=== PATIENT | male | born 1965 | race Caucasian/White ===

== ENCOUNTER 2020-08-21 18:36 | Observation (INO) | payer OTHER ==
--- NOTE | 2020-08-21 19:56 | ED ---
General Adult HPI - General Chief complaint: Chest Pain Stated complaint: Sent by [facility] - Chest Pain Time Seen by Provider: 08/21/20 18:59 Source: patient Mode of arrival: ambulatory Limitations: no limitations - History of Present Illness Initial comments: 55-year-old male presents to the emergency department this evening accompanied by his for evaluation of left-sided chest pain. Patient states pain began around noon today and was accompanied by shortness of breath and diaphoresis. Patient states the pain was made worse by movement and deep breathing. States the pain became so intense that he felt weak and lowered himself onto all fours. Patient denies any nausea or vomiting at that time. States this post came home and was able to coax him into seeking treatment. Patient went to [facility] around 6 PM this evening but he was sent to this ER due to abnormal EKG. Patient was given 4 baby aspirin prior to arrival and states he feels significantly better. Patient is concerned due to a history of pericarditis 5 years ago and states his current symptoms are similar. Also reports some abdominal discomfort at this time. Patient denies any recent rash, fever, chills, cough, diarrhea, constipation, back pain, numbness, tingling, dizziness, hematuria, dysuria, urinary urgency, urinary frequency, headache, visual changes, or any other complaints. - Related Data Home Medications Medication Instructions Recorded Confirmed No Known Home Medications 08/21/20 08/21/20 Allergies Allergy/AdvReac Type Severity Reaction Status Date / Time No Known Allergies Allergy Verified 08/21/20 21:03 Review of Systems ROS Statement: Those systems with pertinent positive or pertinent negative responses have been documented in the HPI. ROS Other: All systems not noted in ROS Statement are negative. Past Medical History Additional Past Medical History / Comment(s): pericarditis History of Any Multi-Drug Resistant Organisms: None Reported Past Surgical History: No Surgical Hx Reported Smoking Status: Never smoker Past Alcohol Use History: Occasional Past Drug Use History: None Reported General Exam Limitations: no limitations General appearance: alert, in no apparent distress, other (Well-developed, well- nourished male in no acute distress. Initial temperature 97.4F, pulse 70, respirations 18, blood pressure 179/84, pulse ox 98% on room air.) Eye exam: Present: normal appearance, PERRL, EOMI. Absent: scleral icterus, conjunctival injection, periorbital swelling Respiratory exam: Present: normal lung sounds bilaterally. Absent: respiratory distress, wheezes, rales, rhonchi, stridor Cardiovascular Exam: Present: regular rate, normal rhythm, normal heart sounds. Absent: systolic murmur, diastolic murmur, rubs, gallop, clicks GI/Abdominal exam: Present: soft, tenderness (Upper abdominal pain though PALPATION), normal bowel sounds. Absent: distended, guarding, rebound, rigid Neurological exam: Present: alert, oriented X3, CN II-XII intact Psychiatric exam: Present: normal affect, normal mood Skin exam: Present: warm, dry, intact, normal color. Absent: rash Course Vital Signs 08/21/20 08/21/20 08/21/20 18:40 20:20 20:43 Temperature 97.4 F L Pulse Rate 70 56 L Respiratory 18 15 18 Rate Blood Pressure 179/84 125/83 O2 Sat by Pulse 98 95 Oximetry Medical Decision Making - Medical Decision Making 55-year-old white male presents to the emergency Department with complaints of left-sided chest pain, onset noon today. Accompanying symptoms include shortness of breath and diaphoresis. Patient's pain was made worse with movement and deep breathing. Patient's spouse took the patient to [facility] ([facility] where an EKG was done and found to be abnormal. He was given 4 baby aspirin prior to arrival and states he is feeling much better. Patient does have a history of pericarditis and states these symptoms are very similar. EKG upon ar rival appears normal with no ST segment changes. Patient is comfortable, heart sounds are normal. Patient does have an elevated white blood cell count. Chest x-ray is negative for any definite acute process, however does show an elevated right hemidiaphragm. Patient is to be admitted for further evaluation and treatment. - Lab Data Result diagrams: 08/21/20 19:45 08/21/20 19:45 Lab Results 08/21/20 08/21/20 08/21/20 Range/Units 19:45 19:45 19:45 WBC 15.0 H (3.8-10.6) k/uL RBC 5.04 (4.30-5.90) m/uL Hgb 15.4 (13.0-17.5) gm/dL Hct 47.5 (39.0-53.0) % MCV 94.2 (80.0-100.0) fL MCH 30.5 (25.0-35.0) pg MCHC 32.4 (31.0-37.0) g/dL RDW 12.4 (11.5-15.5) % Plt Count 215 (150-450) k/uL Neutrophils % 88 % Lymphocytes % 8 % Monocytes % 3 % Eosinophils % 1 % Basophils % 0 % Neutrophils # 13.2 H (1.3-7.7) k/uL Lymphocytes # 1.2 (1.0-4.8) k/uL Monocytes # 0.4 (0-1.0) k/uL Eosinophils # 0.1 (0-0.7) k/uL Basophils # 0.0 (0-0.2) k/uL ESR (0-15) mm/hr PT 9.7 (9.0-12.0) sec INR 0.9 (<1.2) APTT 25.0 (22.0-30.0) sec D-Dimer <0.17 (<0.60) mg/L FEU Sodium 136 L (137-145) mmol/L Potassium 4.3 (3.5-5.1) mmol/L Chloride 103 (98-107) mmol/L Carbon Dioxide 24 (22-30) mmol/L Anion Gap 9 mmol/L BUN 18 (9-20) mg/dL Creatinine 0.92 (0.66-1.25) mg/dL Est GFR (CKD-EPI)AfAm >90 (>60 ml/min/1.73 sqM) Est GFR (CKD-EPI)NonAf >90 (>60 ml/min/1.73 sqM) Glucose 100 H (74-99) mg/dL Calcium 9.7 (8.4-10.2) mg/dL Magnesium 2.0 (1.6-2.3) mg/dL Total Bilirubin 1.0 (0.2-1.3) mg/dL AST 29 (17-59) U/L ALT 22 (4-49) U/L Alkaline Phosphatase 67 (38-126) U/L Troponin I (0.000-0.034) ng/mL C-Reactive Protein (<10.0) mg/L Total Protein 7.8 (6.3-8.2) g/dL Albumin 4.8 (3.5-5.0) g/dL Lipase 78 (23-300) U/L 08/21/20 08/21/20 08/21/20 Range/Units 19:45 19:45 19:45 WBC (3.8-10.6) k/uL RBC (4.30-5.90) m/uL Hgb (13.0-17.5) gm/dL Hct (39.0-53.0) % MCV (80.0-100.0) fL MCH (25.0-35.0) pg MCHC (31.0-37.0) g/dL RDW (11.5-15.5) % Plt Count (150-450) k/uL Neutrophils % % Lymphocytes % % Monocytes % % Eosinophils % % Basophils % % Neutrophils # (1.3-7.7) k/uL Lymphocytes # (1.0-4.8) k/uL Monocytes # (0-1.0) k/uL Eosinophils # (0-0.7) k/uL Basophils # (0-0.2) k/uL ESR 7 (0-15) mm/hr PT (9.0-12.0) sec INR (<1.2) APTT (22.0-30.0) sec D-Dimer (<0.60) mg/L FEU Sodium (137-145) mmol/L Potassium (3.5-5.1) mmol/L Chloride (98-107) mmol/L Carbon Dioxide (22-30) mmol/L Anion Gap mmol/L BUN (9-20) mg/dL Creatinine (0.66-1.25) mg/dL Est GFR (CKD-EPI)AfAm (>60 ml/min/1.73 sqM) Est GFR (CKD-EPI)NonAf (>60 ml/min/1.73 sqM) Glucose (74-99) mg/dL Calcium (8.4-10.2) mg/dL Magnesium (1.6-2.3) mg/dL Total Bilirubin (0.2-1.3) mg/dL AST (17-59) U/L ALT (4-49) U/L Alkaline Phosphatase (38-126) U/L Troponin I <0.012 (0.000-0.034) ng/mL C-Reactive Protein 8.4 (<10.0) mg/L Total Protein (6.3-8.2) g/dL Albumin (3.5-5.0) g/dL Lipase (23-300) U/L - EKG Data EKG shows normal: sinus rhythm Rate: normal EKG Comments: EKG was obtained at 1915 and shows normal sinus rhythm with a ventricular rate of 60, VT interval 156, QRS duration 86, QT/QTc 430/430. Interpreted as a Normal ECG. Interpretation: normal EKG - Radiology Data Radiology results: report reviewed Two-view chest x-ray was obtained. Findings include elevated right hemidiaphragm. Impression per include no definite acute radiographic process. Disposition Clinical Impression: Chest pain Disposition: ADMITTED IP TO THIS HOSP Condition: Serious Referrals: Jeet Garcia DO [Primary Care Provider] - 1-2 days Decision to Admit Reason: Admit from EC Decision Date: 08/21/20 Decision Time: 21:24
[2020-08-21 20:08] LABS: ALT 22 U/L (4-49); AST 29 U/L (17-59); African American GFR (CKD) >90 (>60 ml/min/1.73 sqM); Albumin 4.8 g/dL (3.5-5.0); Alkaline Phosphatase 67 U/L (38-126); Anion Gap 9 mmol/L; Blood Urea Nitrogen 18 mg/dL (9-20); Calcium 9.7 mg/dL (8.4-10.2); Carbon Dioxide 24 mmol/L (22-30); Chloride 103 mmol/L (98-107); Glucose 100 mg/dL (74-99); Lipase 78 U/L (23-300); Non-African American GFR(CKD) >90 (>60 ml/min/1.73 sqM); Potassium 4.3 mmol/L (3.5-5.1); Sodium 136 mmol/L (137-145); Total Protein 7.8 g/dL (6.3-8.2)
[2020-08-21 20:09] LABS: Basophils % (A) 0 %; Eosinophils # (A) 0.1 k/uL (0-0.7); Eosinophils % (A) 1 %; HCT 47.5 % (39.0-53.0); HGB 15.4 gm/dL (13.0-17.5); Lymphocytes # (A) 1.2 k/uL (1.0-4.8); Lymphocytes % (A) 8 %; MCH 30.5 pg (25.0-35.0); MCHC 32.4 g/dL (31.0-37.0); MCV 94.2 fL (80.0-100.0); Mean Platelet Volume 8.7; Monocytes # (A) 0.4 k/uL (0-1.0); Monocytes % (A) 3 %; Neutrophils # (A) 13.2 k/uL (1.3-7.7); Neutrophils % (A) 88 %; Platelet Count 215 k/uL (150-450); RBC 5.04 m/uL (4.30-5.90); RDW 12.4 % (11.5-15.5)
[2020-08-21 20:20] LABS: D-Dimer <0.17 mg/L FEU (<0.60); INR 0.9 (<1.2); Prothrombin Time 9.7 sec (9.0-12.0)
--- NOTE | 2020-08-21 20:25 | XR ---
EXAMINATION: XR chest 2V DATE AND TIME: 08/21/2020 7:54 PM CLINICAL INDICATION: PHH; Chest Pain TECHNIQUE: Departmental protocol COMPARISON: None FINDINGS: The lungs are clear. The pleural spaces are negative. Elevated right hemidiaphragm noted. The cardiac silhouette is not enlarged. The remainder of the mediastinal silhouette is unremarkable. The skeletal structures and soft tissues are negative for acute findings. IMPRESSION: No definite acute radiographic process; elevated right hemidiaphragm noted.
[2020-08-21] MEDS ORDERED: MORPHINE SULFATE 4 MG/ML SYRINGE IV PRN (21:21)
[2020-08-21] MEDS ORDERED: ONDANSETRON 4 MG/2 ML VIAL IVP PRN (21:21)
[2020-08-21] MEDS ORDERED: NALOXONE 0.4 MG/ML 1 ML VIAL IV PRN (21:21)
[2020-08-22] MEDS ORDERED: CAFFEINE CITRATE 60 MG/3 ML VIAL IV PRN (08:11)
[2020-08-22] MEDS ORDERED: REGADENOSON 0.4 MG/5 ML SYRINGE IV ONE (08:11)
[2020-08-22] MEDS ORDERED: AMINOPHYLLINE 500 MG/20 ML VIAL IV PRN (08:11)
[2020-08-22] MEDS ORDERED: ASPIRIN 325 MG TAB PO SCH (09:00)
--- NOTE | 2020-08-22 10:52 | NM ---
EXAMINATION TYPE: NM stress lexiscan cardiolite DATE OF EXAM: 08/22/2020 COMPARISON: NONE HISTORY: Chest pain TECHNIQUE: After the intravenous administration of 10.56 mCi Tc 99m Sestamibi - Cardiolite resting S PECT images acquired 45 minutes post injection. The patient received 0.4mg Lexiscan, 25.8 mCi Tc 99m Sestamibi - Stress images obtained [address] injection FINDINGS: Review of stress and rest SPECT images demonstrates no distinct perfusion abnormality. Gated analysi s shows normal wall motion with an estimated left ventricular ejection fraction of 63 %. TID 1.00 IMPRESSION: No scintigraphic evidence for reversible ischemia.
--- NOTE | 2020-08-22 13:31 | P.HPIM ---
History of Present Illness 55-year-old male came in with the lesser chest pain which is sharp in nature worsens with deep breathing moderate severity patient had history of pericarditis in the past which was most severe back then. Patient has similar symptoms now much less severe patient chest pain does improve with bending forwards patient has a d-dimer which is within normal limits patient appears to pericarditis again. Patient was evaluated and ruled out for acute coronary syndromes and patient had a stress test which was negative. Patient doesn't like to take medication because of which I am giving him a short course of nonsteroidal anti-inflammatories possible pericarditis. Review of Systems REVIEW OF SYSTEMS: CONSTITUTIONAL: No fever, no malaise, no fatigue. HEENT: No recent visual problems or hearing problems. Denied any sore throat. CARDIOVASCULAR: No orthopnea, PND, no palpitations, no syncope. PULMONARY: No shortness of breath, no cough, no hemoptysis. GASTROINTESTINAL: No diarrhea, no nausea, no vomiting, no abdominal pain. NEUROLOGICAL: No headaches, no weakness, no numbness. HEMATOLOGICAL: Denies any bleeding or petechiae. GENITOURINARY: Denies any burning micturition, frequency, or urgency. MUSCULOSKELETAL/RHEUMATOLOGICAL: Denies any joint pain, swelling, or any muscle pain. ENDOCRINE: Denies any polyuria or polydipsia. The rest of the 14-point review of systems is negative. Past Medical History Additional Past Medical History / Comment(s): pericarditis History of Any Multi-Drug Resistant Organisms: None Reported Past Surgical History: No Surgical Hx Reported Past Anesthesia/Blood Transfusion Reactions: No Reported Reaction Past Psychological History: No Psychological Hx Reported Smoking Status: Never smoker Past Alcohol Use History: Occasional Past Drug Use History: None Reported - Past Family History Father Family Medical History: Cancer Mother Family Medical History: Cancer, Diabetes Mellitus Medications and Allergies Home Medications Medication Instructions Recorded Confirmed Type Famotidine [Pepcid] 20 mg PO BID #30 tablet 08/22/20 Rx Ibuprofen [Motrin] 600 mg PO Q8HR #100 tab 08/22/20 Rx Allergies Allergy/AdvReac Type Severity Reaction Status Date / Time No Known Allergies Allergy Verified 08/21/20 21:03 Physical Exam Vitals: Vital Signs Temp Pulse Pulse Resp BP BP Pulse Ox 08/22/20 08:23 97.8 F 59 L 16 158/90 96 08/22/20 03:00 97.4 F L 67 16 124/75 96 08/21/20 22:32 98.2 F 58 L 18 140/80 97 08/21/20 22:11 97.7 F 53 L 18 138/85 98 08/21/20 20:43 56 L 18 125/83 95 08/21/20 20:20 15 08/21/20 18:40 97.4 F L 70 18 179/84 98 Intake and Output 08/21/20 08/22/20 08/22/20 22:59 06:59 14:59 Other: Voiding Method Toilet Toilet # Voids 2 1 Weight 140.614 kg 140.61 kg PHYSICAL EXAMINATION: GENERAL: The patient is alert and oriented x3, not in any acute distress. Well developed, well nourished. HEENT: Pupils are round and equally reacting to light. EOMI. No scleral icterus. No conjunctival pallor. Normocephalic, atraumatic. No pharyngeal erythema. No thyromegaly. CARDIOVASCULAR: S1 and S2 present. No murmurs, rubs, or gallops. PULMONARY: Chest is clear to auscultation, no wheezing or crackles. ABDOMEN: Soft, nontender, nondistended, normoactive bowel sounds. No palpable organomegaly. MUSCULOSKELETAL: No joint swelling or deformity. EXTREMITIES: No cyanosis, clubbing, or pedal edema. NEUROLOGICAL: Gross neurological examination did not reveal any focal deficits. SKIN: No rashes. Results CBC & Chem 7: 08/21/20 19:45 08/21/20 19:45 Labs: Abnormal Lab Results - Last 24 Hours (Table) 08/21/20 08/21/20 Range/Units 19:45 19:45 WBC 15.0 H (3.8-10.6) k/uL Neutrophils # 13.2 H (1.3-7.7) k/uL Sodium 136 L (137-145) mmol/L Glucose 100 H (74-99) mg/dL Thrombosis Risk Factor Assmnt - Choose All That Apply Each Factor Represents 1 point: Age 41-60 years Other Risk Factors: No Other congenital or acquired thrombophilia - If yes, enter type in comment: No Thrombosis Risk Factor Assessment Total Risk Factor Score: 1 Thrombosis Risk Factor Assessment Level: Low Risk Assessment and Plan Plan: -Chest pain: Ruled out acute coronary syndromes. Patient has stress test which was negative for any inducible ischemia. Patient probably has pericarditis will be discharged on the nonsteroidal anti-inflammatories and Pepcid. -Leukocytosis: Reactive in nature.
--- NOTE | 2020-08-22 13:32 | P.DS ---
Providers Date of admission: 08/21/20 21:26 Attending physician: Agnes Martins Consults: 08/21/20 21:22 Consult Physician Routine Consulting Provider: [facility] Consult Reason/Comments: Chest Pain Do you want consulting provider notified?: Yes Primary care physician: Jeet Garcia [facility] Course: Please review my H&P for further details. Patient Condition at Discharge: Serious Plan - Discharge Summary Discharge Rx Participant: No New Discharge Prescriptions: New Ibuprofen [Motrin] 600 mg PO Q8HR #100 tab Famotidine [Pepcid] 20 mg PO BID #30 tablet Discharge Medication List Famotidine [Pepcid] 20 mg PO BID #30 tablet 08/22/20 [Rx] Ibuprofen [Motrin] 600 mg PO Q8HR #100 tab 08/22/20 [Rx] Follow up Appointment(s)/Referral(s): [facility] [Provider Group] - 1 Week Jeet Garcia DO [Primary Care Provider] - 3 Days Discharge Disposition: HOME SELF-CARE
[2020-08-22 17:01] VITALS: BP 128/77; PULSE 58; RESP 14; TEMP 97.7
--- NOTE | 2020-08-22 17:03 | P.STRESS ---
- Stress Test Note Stress Test Results/Findings: Exam Performed: NM stress lexiscan cardiolite Exam Date: 08/22/20 Reason for Exam: CHEST PAIN Height: 5 ft 11 in Weight: 140.61 kg Protocol: LEXISCAN Stage: N/A Duration of Exercise: 6 MINUTES Resting Heart Rate: 63 Resting Blood Pressure: 138/79 Maximum Achieved Heart Rate: 87 Maximum Achieved Blood Pressure: 141/78 85% PMHR: 139 100% PMHR: 163 METS: N/A Technologist Comment: Stress Test Results/Findings: At baseline EKG showed normal sinus rhythm, normal axis, no significant ST-T wave abnormalities. Patient recieved IV infusion of Lexiscan 0.4mg and at peak infusion EKG showed no significant change. Conclusions: 1. Normal EKG response to Lexiscan infusion 2. Nuclear imaging to be reported separately.
--- NOTE | 2020-08-22 17:41 | P.CRDCN ---
History of Present Illness Consult date: 08/22/20 History of present illness: HISTORY OF PRESENTING ILLNESS This is a pleasant 55-year-old male past medical history significant for pericarditis. Patient presents with chest pain over the last day which feels sharp and is worse with deep breathing. He does have a history of pericarditis from a few years back and had been doing fairly well. He followed up with a drapery inspector however stated that he had been doing well and therefore was not recommended to follow-up. He denies prior history of similar chest pain other than somewhat with his pericarditis. He states that the chest pain is associated with some shortness of breath but the shortness breath is mainly that he can't take a deep breath in. He additionally states that the pain is somewhat improved with sitting forward. No nausea or diaphoresis. DIAGNOSTICS EKG reveals normal sinus rhythm, Q wave in lead 3 with T-wave inversion in lead 3 very minimal possible [place] depression in lead 2 and V4 through V6, minimal 0.[address] elevation in lead V2 V3. No reciprocal changes. Chest xray tiny area of subsegmental atelectasis left lung Laboratory reviewed, white blood cell count 15.0, hemoglobin 15.4, platelets 2:15, d-dimer less than 0.17, creatinine 0.92, troponin less than 0.0123. Current cardiac medications include aspirin 325 mg daily. REVIEW OF SYSTEMS At the time of my exam: CONSTITUTIONAL: Denies fever or chills. CARDIOVASCULAR: Denies chest pain, shortness of breath, orthopnea, PND or palpitations. RESPIRATORY: Denies cough. GASTROINTESTINAL: Denies abdominal pain, diarrhea, constipation, nausea or vomiting. MUSCULOSKELETAL: Denies myalgias. NEUROLOGIC: Denies numbness, tingling or weakness. ENDOCRINE: Denies fatigue, weight change, polydipsia or polyurina. GENITOURINARY: Denies burning, hematuria or urgency with micturation. HEMATOLOGIC: Denies history of anemia or bleeding. PHYSICAL EXAMINATION Blood pressure 128/77 heart rate 58 afebrile and maintaining oxygen saturation on room air. CONSTITUTIONAL: No apparent distress. HEENT: Head is normocephalic. Pupils are equal, round. Sclerae anicteric. Mucous membranes of the mouth are moist. No JVD. No carotid bruit. CHEST EXAMINATION: Lungs are clear to auscultation. No chest wall tenderness is noted on palpation or with deep breathing. HEART EXAMINATION: Regular rate and rhythm. S1, S2 heard. No murmurs, gallops or rub. ABDOMEN: Soft, nontender. Positive bowel sounds. EXTREMITIES: 2+ peripheral pulses, no lower extremity edema and no calf tenderness. NEUROLOGIC EXAMINATION: Patient is awake, alert and oriented x3. ASSESSMENT 1. Atypical chest pain which is somewhat pleuritic, worsened with deep i nspiration 2. History of pericarditis 3. Leukocytosis PLAN Patient without classical findings of pericarditis on EKG however questionable mild [place] depression and borderline ST elevation. He additionally does have improvement with sitting forward. Stress test was performed which showed no inducible ischemia and echo was reviewed by myself showing ejection fraction 60- 65%, elevated RVSP of 42.3 without significant pericardial effusion. Agree with trial of NSAIDs for possible pericarditis. May consider colchicine as an outpatient. Patient appears stable for discharge from a cardiac standpoint. Past Medical History Additional Past Medical History / Comment(s): pericarditis History of Any Multi-Drug Resistant Organisms: None Reported Past Surgical History: No Surgical Hx Reported Past Anesthesia/Blood Transfusion Reactions: No Reported Reaction Past Psychological History: No Psychological Hx Reported Smoking Status: Never smoker Past Alcohol Use History: Occasional Past Drug Use History: None Reported - Past Family History Father Family Medical History: Cancer Mother Family Medical History: Cancer, Diabetes Mellitus Medications and Allergies Home Medications Medication Instructions Recorded Confirmed Type Famotidine [Pepcid] 20 mg PO BID #30 tablet 08/22/20 Rx Ibuprofen [Motrin] 600 mg PO Q8HR #100 tab 08/22/20 Rx Allergies Allergy/AdvReac Type Severity Reaction Status Date / Time No Known Allergies Allergy Verified 08/21/20 21:03 Physical Exam Vitals: Vital Signs Temp Pulse Pulse Resp BP BP Pulse Ox 08/22/20 14:30 97.7 F 58 L 14 128/77 97 08/22/20 08:23 97.8 F 59 L 16 158/90 96 08/22/20 03:00 97.4 F L 67 16 124/75 96 08/21/20 22:32 98.2 F 58 L 18 140/80 97 08/21/20 22:11 97.7 F 53 L 18 138/85 98 08/21/20 20:43 56 L 18 125/83 95 08/21/20 20:20 15 08/21/20 18:40 97.4 F L 70 18 179/84 98 Intake and Output 08/22/20 08/22/20 08/22/20 06:59 14:59 22:59 Other: Voiding Method Toilet Toilet # Voids 1 1 Weight 140.61 kg Results 08/21/20 19:45 08/21/20 19:45 Cardiac Enzymes 08/21/20 08/21/20 08/21/20 Range/Units 19:45 19:45 23:13 AST 29 (17-59) U/L Troponin I <0.012 <0.012 (0.000-0.034) ng/mL 08/22/20 Range/Units 02:20 AST (17-59) U/L Troponin I <0.012 (0.000-0.034) ng/mL Coagulation 08/21/20 Range/Units 19:45 PT 9.7 (9.0-12.0) sec APTT 25.0 (22.0-30.0) sec CBC 08/21/20 Range/Units 19:45 WBC 15.0 H (3.8-10.6) k/uL RBC 5.04 (4.30-5.90) m/uL Hgb 15.4 (13.0-17.5) gm/dL Hct 47.5 (39.0-53.0) % Plt Count 215 (150-450) k/uL Comprehensive Metabolic Panel 08/21/20 Range/Units 19:45 Sodium 136 L (137-145) mmol/L Potassium 4.3 (3.5-5.1) mmol/L Chloride 103 (98-107) mmol/L Carbon Dioxide 24 (22-30) mmol/L BUN 18 (9-20) mg/dL Creatinine 0.92 (0.66-1.25) mg/dL Glucose 100 H (74-99) mg/dL Calcium 9.7 (8.4-10.2) mg/dL AST 29 (17-59) U/L ALT 22 (4-49) U/L Alkaline Phosphatase 67 (38-126) U/L Total Protein 7.8 (6.3-8.2) g/dL Albumin 4.8 (3.5-5.0) g/dL Current Medications Generic Name Dose Route Start Last Admin Trade Name Freq PRN Reason Stop Dose Admin Aminophylline 100 mg 08/22/20 08:11 Aminophylline 500 Mg/20 Ml Vial IV ONCE PRN Patient Response Aspirin 325 mg 08/22/20 09:00 Aspirin 325 Mg Tab PO DAILY [place] Caffeine Citrate 60 mg 08/22/20 08:11 Caffeine Citrate 60 Mg/3 Ml Vial IV ONCE PRN Patient Response Morphine Sulfate 4 mg 08/21/20 21:21 Morphine Sulfate 4 Mg/Ml Syringe IV Q4HR PRN Severe Pain Naloxone HCl 0.2 mg 08/21/20 21:21 Naloxone 0.4 Mg/Ml 1 Ml Vial IV Q2M PRN Opioid Reversal Ondansetron HCl 4 mg 08/21/20 21:21 Ondansetron 4 Mg/2 Ml Vial IVP Q8HR PRN Nausea And Vomiting Intake and Output 08/22/20 08/22/20 08/22/20 06:59 14:59 22:59 Other: Voiding Method Toilet Toilet # Voids 1 1 Weight 140.61 kg Patient Weight 08/23/20 06:59 Weight 140.61 kg 08/21/20 19:45 08/21/20 19:45
--- NOTE | 2020-08-23 05:00 | ECHOF ---
Referral Reason:Chest Pain MEASUREMENTS -------- HEIGHT: 180.3 cm WEIGHT: 140.6 kg BP: 124/75 RVIDd: 4.0 cm (< 3.3) IVSd: 1.6 cm (0.6 - 1.1) LVIDd: 4.8 cm (3.9 - 5.3) LVPWd: 1.6 cm (0.6 - 1.1) IVSs: 2.2 cm LVIDs: 3.4 cm LVPWs: 2.2 cm LA Diam: 4.0 cm (2.7 - 3.8) LAESV Index (A-L): 32.53 ml/m Ao Diam: 3.6 cm (2.0 - 3.7) AV Cusp: 2.2 cm (1.5 - 2.6) MV EXCURSION: 16.790 mm (> 18.000) MV EF SLOPE: 129 mm/s (70 - 150) EPSS: 0.3 cm MV E Saran: 0.91 m/s MV DecT: 255 ms MV A Saran: 0.80 m/s MV E/A Ratio: 1.15 RAP: 15.00 mmHg RVSP: 42.30 mmHg FINDINGS -------- Sinus rhythm. This was a technically adequate study. The left ventricular size is normal. There is moderate concentric left ventricular hypertrophy. O verall left ventricular systolic function is normal with, an EF between 60 - 65 %. The right ventricle is moderately enlarged. LA is midly dilated 29-33ml/m2. The right atrium is normal in size. Interatrial and interventricular septum intact. Aortic valve is trileaflet and is mildly thickened. There is trace to mild mitral regurgitation. Mild tricuspid regurgitation present. There is mild pulmonary hypertension. The right ventricular systolic pressure, as measured by Doppler, is 42.30mmHg. Trace/mild (physiologic) pulmonic regurgitation. The aortic root size is normal. Normal inferior vena cava with less than 50% inspiratory collapse consistent with estimated right atr ial pressure of 15 mmHg. There is no pericardial effusion. CONCLUSIONS -------- 1. The left ventricular size is normal. 2. There is moderate concentric left ventricular hypertrophy. 3. Overall left ventricular systolic function is normal with, an EF between 60 - 65 %. 4. The right ventricle is moderately enlarged. 5. LA is midly dilated 29-33ml/m2. 6. Aortic valve is trileaflet and is mildly thickened. 7. There is trace to mild mitral regurgitation. 8. Mild tricuspid regurgitation present. 9. There is mild pulmonary hypertension. 10. The right ventricular systolic pressure, as measured by Doppler, is 42.30mmHg. 11. Trace/mild (physiologic) pulmonic regurgitation. 12. Normal inferior vena cava with less than 50% inspiratory collapse consistent with estimated right atrial pressure of 15 mmHg. 13. There is no pericardial effusion. PAYROLL CONSULTANT: Monica Li RDCS
== END 2020-08-22 18:26 | disposition home or self-care (01) ==
LOC: EC 18:36 → 3NCARDOBS 21:26
PROVIDERS: ADMIT Hospitalist; ATTEND Hospitalist
DX: R07.89 Other chest pain (principal); R94.31 Abnormal electrocardiogram [ECG] [EKG]; D72.829 Elevated white blood cell count, unspecified; R06.02 Shortness of breath; R61 Generalized hyperhidrosis; R53.1 Weakness; J98.6 Disorders of diaphragm; Z86.79 Personal history of other diseases of the circulatory system; Z83.3 Family history of diabetes mellitus; Z80.9 Family history of malignant neoplasm, unspecified
CPT/HCPCS: 93005 ×2; 99285; 36415; 93017; 93306; 85379; 80053; 85652; 83690; 83735; 84484 ×2; 85025; 85610; 85730; 86140; 71046; 78452; G0378 ×2; A9500; J2785